=== PATIENT | male | born 1965 | race Caucasian/White ===

== ENCOUNTER → 2017-08-27 | Outpatient (CLI) | payer OTHER ==
--- NOTE | 2017-08-28 09:43 | ECHOF ---
Referral Reason:I50.3 Diastolic (congestive) heart failure MEASUREMENTS -------- HEIGHT: 182.9 cm WEIGHT: 114.8 kg BP: 172/91 IVSd: 1.2 cm (0.6 - 1.1) LVIDd: 4.2 cm (3.9 - 5.3) LVPWd: 1.2 cm (0.6 - 1.1) IVSs: 1.4 cm LVIDs: 3.2 cm LVPWs: 1.3 cm LAESV Index (A-L): 16.09 ml/m Ao Diam: 3.2 cm (2.0 - 3.7) AV Cusp: 1.8 cm (1.5 - 2.6) LA Diam: 2.7 cm (2.7 - 3.8) MV E Zion: 0.63 m/s MV A Zion: 0.99 m/s MV E/A Ratio: 0.64 MV EF SLOPE: 101.79 mm/s (70 - 150) MV EXCURSION: 1.79 cm (> 18.000) FINDINGS -------- Sinus rhythm. This was a technically adequate study. The left ventricular size is normal. There is borderline concentric left ventricular hypertrophy. There is mild global hypokinesis of LV . Overall left ventricular systolic function is low-normal with, an EF between 50 - 55 %. The right ventricle is normal in size and function. Normal LA size by volume 22+/-6 ml/m2. The right atrium is normal in size. Aortic valve is trileaflet and is mildly thickened. There is no evidence of aortic regurgitation. There is no evidence of aortic stenosis. The mitral valve leaflets are mildly thickened. There is trace to mild mitral regurgitation. Trace tricuspid regurgitation present. Right ventricular systolic pressure is normal at < 35 mmHg. There is no evidence of pulmonary hypertension. The pulmonic valve was not well visualized. The aortic root size is normal. IVC Not well visulized. There is no pericardial effusion. CONCLUSIONS -------- 1. Sinus rhythm. 2. This was a technically adequate study. 3. The left ventricular size is normal. 4. There is borderline concentric left ventricular hypertrophy. 5. There is mild global hypokinesis of LV . 6. Normal LA size by volume 22+/-6 ml/m2. 7. Aortic valve is trileaflet and is mildly thickened. 8. The mitral valve leaflets are mildly thickened. 9. There is trace to mild mitral regurgitation. 10. Trace tricuspid regurgitation present. 11. Right ventricular systolic pressure is normal at < 35 mmHg. 12. There is no evidence of pulmonary hypertension. 13. The pulmonic valve was not well visualized. 14. The aortic root size is normal. 15. There is no pericardial effusion. [employer] DEVELOPER: Hakeem Duncan RDCS
== END | disposition home or self-care (01) ==
LOC: RADECHMAIN 12:44
PROVIDERS: ATTEND Family Medicine
DX: I08.3 Combined rheumatic disorders of mitral, aortic and tricuspid valves (principal); I50.30 Unspecified diastolic (congestive) heart failure
CPT/HCPCS: 93306

== ENCOUNTER 2017-08-31 08:05 | Day surgery (SDC) | payer OTHER ==
[2017-08-25 11:00] VITALS: BMI 34.3
[~2017-08-31 08:05] MED LIST: LACTATED RINGERS 1,000 ML IV SCH
[2017-08-31 08:37] VITALS: RESP 18; TEMP 97.9
[2017-08-31 08:40] LABS: Glucose,Whole Blood 167 mg/dL (75-99)
[2017-08-31] MEDS ORDERED: LIDOCAINE 1% INJ 10MG/ML (20 ML MDV) ONE (08:40)
[2017-08-31] MEDS ORDERED: PROPOFOL 10 MG/ML 20 ML VIAL IV ONE (08:40)
--- NOTE | 2017-08-31 08:44 | P.GSHP ---
History of Present Illness H&P Date: 08/31/17 Chief Complaint: Screening colonoscopy This a 52-year-old male referred from Dr. Linda Contreras. Patient presents today for screening colonoscopy. She denies a significant GI complaints. Past Medical History Past Medical History: Diabetes Mellitus, Hyperlipidemia, Hypertension History of Any Multi-Drug Resistant Organisms: None Reported Past Surgical History: Appendectomy, Tonsillectomy Additional Past Surgical History / Comment(s): Kidney stone removal Past Anesthesia/Blood Transfusion Reactions: No Reported Reaction Smoking Status: Never smoker - Past Family History Mother Family Medical History: No Reported History Medications and Allergies Home Medications Medication Instructions Recorded Confirmed Type Aspirin [Adult Low Dose Aspirin EC] 81 mg PO DAILY 08/25/17 08/25/17 History Ezetimibe 10 mg PO DAILY 08/25/17 08/25/17 History Losartan [Cozaar] 50 mg PO DAILY 08/25/17 08/25/17 History sitaGLIPtin PHOS/metFORMIN HCL 1 each PO BID 08/25/17 08/25/17 History [Janumet 50-500 mg Tablet] Allergies Allergy/AdvReac Type Severity Reaction Status Date / Time No Known Allergies Allergy Verified 08/31/17 08:19 Surgical - Exam Vital Signs Temp Pulse Resp BP Pulse Ox 97.9 F 94 18 149/76 99 08/31/17 08:22 08/31/17 08:22 08/31/17 08:22 08/31/17 08:22 08/31/17 08:22 - General well developed, no distress - Eyes PERRL - ENT normal pinna - Neck no masses - Respiratory normal expansion - Cardiovascular Rhythm: regular - Abdomen Abdomen: soft, non tender Results - Labs Abnormal Lab Results - Last 24 Hours (Table) 08/31/17 Range/Units 08:28 POC Glucose (mg/dL) 167 H (75-99) mg/dL Assessment and Plan Assessment: We'll perform screening colonoscopy.
--- NOTE | 2017-08-31 08:58 | P.OP ---
Date of Procedure: 08/31/17 Preoperative Diagnosis: Screening colonoscopy Postoperative Diagnosis: Severe external hemorrhoids Procedure(s) Performed: Colonoscopy Anesthesia: MAC Surgeon: Cain Porter Pathology: none sent Condition: stable Disposition: PACU Description of Procedure: The patient's placed on the endoscopy table in the lateral position. He received IV sedation. Digital rectal exam was performed which revealed external hemorrhoids. The flexible colonoscope was then placed patient anus passed throughout the entire colon. The ileocecal valve was visualized. The cecum, ascending and transverse colon appeared normal. The descending and sigmoid colon appeared normal. Scope summer back the rectum this appeared normal. Scope was withdrawn through the anus and there were significant external hemorrhoids noted. Scope was withdrawn for patient.
[2017-08-31 09:12] VITALS: BP 120/75; PULSE 74
== END 2017-08-31 09:37 | disposition home or self-care (01) ==
LOC: ORWHC2ENDO 08:05
PROVIDERS: ATTEND Surgery
DX: Z12.11 Encounter for screening for malignant neoplasm of colon (principal); K64.4 Residual hemorrhoidal skin tags; E11.9 Type 2 diabetes mellitus without complications; E78.5 Hyperlipidemia, unspecified; I10 Essential (primary) hypertension; E66.01 Morbid (severe) obesity due to excess calories; Z68.34 Body mass index [BMI] 34.0-34.9, adult; Z79.84 Long term (current) use of oral hypoglycemic drugs; Z79.82 Long term (current) use of aspirin; Z79.899 Other long term (current) drug therapy
CPT/HCPCS: J2001; J2704; G0121; 45378

== ENCOUNTER → 2022-03-17 | Outpatient (CLI) | payer BC ==
--- NOTE | 2022-03-17 11:49 | CA ---
Exercise Stress Test Report Name: Nicholas Quinonez Exam Date: 03/17/2022 09:48 Exam Location: [facility] Ht (in): 72 Wt (lb): 253 BSA: 2.35 Ordering Phys: Dexter Archibald MD Referring Phys: ROBERT, Technologist: Cornelius Do Age: 56 Gender: M : 1965 Procedure CPT: Indications: I20.9 angina pectoris ICD-10 Codes: Patient History: CHEST PAIN, DIFFICULTY IN BREATHING, PALPITATIONS, ANGINA, DIABETES, FAMILY HX OF HEART DISEASE, PRIOR [place], PRIOR CARDIAC CATH, Medications: ASA, CURARIN, GUGULEANE, IODINE HP, HEART FORMULA Meds past 24 hrs: Pretest Chest Pain: STRESS TEST Jeevan Protocol Exercise Duration (min:sec): 06:[address] Depressions (mm): Angina Score: Paul Score: Resting HR (bpm): 89 Peak HR (bpm): 143 Resting BP (mmHg): 148 / 85 Peak BP (mmHg): 195 / 77 MPHR: 162 Target HR: 138 % MPHR: 88 METS: 7.1 Total Dose: Peak Dose: Atropine: Double Product: 56194 BP Response: Stress Termination: Stress Symptoms: SHORTNESS OF BREATH Stress Summary: ECG ANALYSIS Resting ECG: Normal sinus rhythm normal axis normal intervals Stress ECG: Patient exercised on Jeevan protocol for 6 minutes achieving 7 metastases developed shortness of breath and [address] segment depression in inferolateral leads with T-wave inversions that persisted into recovery CONCLUSIONS Average exercise tolerance Abnormal stress test by EKG criteria Cardiolite portion of the stress test will be reported separately Patient was to be seen by me but was let go prior to that. I advised the hospital personnel to follow the nuclear scan results forwarded to primary care physician so that patient can receive expeditious appropriate Dr. Edmond Rivera MD (Electronically Signed) Final Date: 17 March 2022 11:48
--- NOTE | 2022-03-17 12:52 | NM ---
EXAMINATION TYPE: NM stress cardiolite complete DATE OF EXAM: 03/17/2022 COMPARISON: NONE HISTORY: History of diabetes along with prior heart attack presents with chest pain and palpitations. TECHNIQUE: After the intravenous administration of 10.1 mCi Tc 99m Sestamibi - Rest images obtained 45 minutes post injection. The patient exercised using a URI protocol and 1 minute prior to peak exercise was injected with 25.5 mCi Tc 99m Sestamibi - Stress images obtained 10 minutes post injecti on. FINDINGS: Targeted heart rate was achieved during performance of the study. Review of stress and rest SPECT valentin ges demonstrates poor radiotracer uptake involving lateral left ventricular wall at stress and rest i mages consistent with old infarct. Suggestion of second infarct involving the anterior septal wall wi th diminished radiotracer uptake on Polar map. Overall ejection fraction of 34%, diminished from the normal range. Abnormal elevated end-diastolic volume. Areas of sherwin-infarct ischemia cannot be exclud ed based on Polar map analysis. IMPRESSION: Evidence of dilated cardiomyopathy. Old infarcts noted. Sherwin-infarct ischemia cannot be e xcluded on this exam.
== END | disposition home or self-care (01) ==
LOC: RADNMMAIN 07:31
PROVIDERS: ATTEND Family Medicine
DX: I25.119 Atherosclerotic heart disease of native coronary artery with unspecified angina pectoris (principal); I49.3 Ventricular premature depolarization; I25.2 Old myocardial infarction; E11.9 Type 2 diabetes mellitus without complications; I42.0 Dilated cardiomyopathy
CPT/HCPCS: 93017; 78452; A9500

== ENCOUNTER → 2023-09-11 | Outpatient (CLI) | payer BC ==
--- NOTE | 2023-09-11 17:15 | MR ---
EXAMINATION TYPE: MR brain and iac wo/w con DATE OF EXAM: 09/11/2023 4:54 PM CLINICAL INDICATION:Male, 58 years old with history of H90.A22 SNSRNRL HEAR LOSS, UNI, L EAR, WITH RS TRCD; PHH, Plugged left ear and tinnitus COMPARISON: None TECHNIQUE: Multi planar, multi sequence imaging was performed through the brain. Specialized thin s equences were obtained through the internal auditory canals. Pre-and post gadolinium sequences were obtained. MR contrast: IV Contrast: 10.5 cc Gadavist FINDINGS: Remote left hermosillo radiata injury. The zeng-white junctions, ventricular system, and cisterns appear unremarkable. Scattered foci of high T2 signal intensity are seen within the periventricular white m atter. Midline structures show no abnormality. Diffusion-weighted imaging shows no evidence of restri cted diffusion. The susceptibility weighted images do not reveal any evidence for micro-hemorrhage. The bone marrow signal is within normal limits. Paranasal sinuses and mastoid air cells: Mild scattered paranasal sinus disease. Visualized orbits: Orbital contents are intact. After administration of gadolinium, no abnormal enhancement is seen. Right: The internal auditory canal sequences demonstrate no significant irregularity. The 7th cranial nerve s, 8 cranial nerves, and cerebellar pontine angles appear unremarkable. After the administration pito olinium, no abnormal enhancement is seen within the internal auditory canals. Vascular loop: None. Left: There may be a there is an area of what is thought to be somewhat linear enhancement within the anterior nerve within the internal auditory canal possibly within cranial nerves VII and with the co chlear nerve. IMPRESSION: 1. Somewhat linear enhancement within the left anterior cranial nerves possibly within cranial nerve VII or cochlear nerve possibly representing small schwannoma versus neuritis. Short-term follow-up i n 6-12 months recommended with MRI brain with IV contrast. 2. No evidence of intracranial mass nor acute/subacute CVA. 3. No evidence of internal auditory canal abnormality. 4. Nonspecific white matter changes, likely secondary to small vessel ischemic disease.
== END | disposition home or self-care (01) ==
LOC: RADMRIMAIN 15:47
PROVIDERS: ATTEND Otolaryngology
DX: H90.A22 Sensorineural hearing loss, unilateral, left ear, with restricted hearing on the contralateral side (principal); H93.12 Tinnitus, left ear
CPT/HCPCS: 70553; A9585